=== PATIENT | male | born 2005 | race African-American/Black ===

== ENCOUNTER 2023-03-17 13:51 | Emergency (ER) | payer BC ==
[~2023-03-17] VITALS: Ht 182.9 cm; Wt 78.9 kg
[2023-03-17 14:04] VITALS: BP 131/69; PULSE 62; RESP 16; TEMP 98; O2SAT 100
[2023-03-17] MEDS ORDERED: cefTRIAXone 500 MG in LIDOCAINE MPF 1% 1 ML IM ONE (14:50)
[2023-03-17] MEDS ORDERED: cefTRIAXone 500 MG VIAL ONE (15:05)
[2023-03-17] MEDS ORDERED: LIDOCAINE MPF 1% 5 ML ONE (15:05)
[2023-03-17] MEDS ORDERED: DOXY-690 PO (15:40)
[2023-03-17 16:22] VITALS: BP 131/69; PULSE 62; RESP 16; TEMP 98; O2SAT 100
[2023-03-17 16:29] LABS: HIV RAPID SCREEN NON-REACTIVE (NON REACTIV)
[2023-03-18 19:34] LABS: RAPID PLASMA REAGIN NON-REACTIVE (Non Reactiv)
== END 2023-03-17 16:23 | disposition home or self-care (01) ==
LOC: MED 13:51
DX: N48.89 Other specified disorders of penis (principal)
CPT/HCPCS: 86592; 86703; 96372; 99283; J0696; J2001